=== PATIENT | female | born 1950 | race Caucasian/White ===

== ENCOUNTER 2016-07-24 15:20 | Inpatient (IN) | payer BC, MEDICARE ==
[~2016-07-24 15:20] MED LIST: ALBUTEROL17 GM; ALEVE220 M1 PO; AXERT12.5 MG; BENTYL20 M1 PO; CALCIUM + VITA1 EAC4 PO; CITRACAL200 MG PO; CITRATE OF MAG300 M1 PO; COMPAZINE10 M PO; COSAMIN DS PO; D-VERT25 MG PO; FIBER CHOICE1 EACH PO; FLONASE ALLERG9.9 ML NS; MEDROL4 MG PO; NAPROSYN500 MG PO; NEXIUM20 MG; PRILOSEC10 MG PO; PROAIR RESPICL90 MCG INH; PROTONIX40 M2 PO; SYNTHROID50 MC1 PO; TYLENOL325 M2 PO; VANCOCIN HCL125 MG PO; VITAMIN B12-FO1 EAC1 PO; XOPENEX HFA15 GM IH; ZYRTEC10 M1 PO; ZYRTEC5 MG
[2016-07-24 16:03] LABS: BASO % 0.3 % (0-2); EOS % 0.5 % (0-7); EOSINOPHIL ABSOLUTE COUNT 0.1 tho/cmm (0.0-0.7); HCT-HEMATOCRIT 42.3 % (34.0-49.0); HGB-HEMOGLOBIN 14.1 gm/dl (12.0-15.5); IMMATURE GRANULOCYTES ABSOLUTE 0.03 tho/cmm (0-0.03); IMMATURE GRANULOCYTES PERCENT 0.3 % (0-0.3); LYMPH % 16.6 % (20-45); LYMPH ABSOLUTE COUNT 1.7 tho/cmm (0.8-4.5); MCH (MEAN CORPUSCULAR HGB) 29.9 pg (28.0-32.0); MCHC MEAN CORPUSCULAR HGB CONC 33.3 % (32.0-36.0); MCV (MEAN CELL VOLUME) 89.8 fl (82.0-96.0); MEAN PLATELET VOLUME 9.6 cmc (9.4-12.4); MONO % 7.8 % (0-12); MONOCYTE ABSOLUTE COUNT 0.8 tho/cmm (0.0-1.2); NEUTROPHIL ABSOLUTE COUNT 7.8 tho/cmm (1.6-8.0); NEUTROPHIL-AUTOMATED 7.8 tho/cmm (1.6-8.0); NEUTROPHILS % 74.5 % (40-80); PLATELET COUNT 233 tho/cmm (150-450); RED BLOOD COUNT 4.71 mil/cmm (4.00-5.20); RED CELL DISTRIBUTION WIDTH 13.4 % (12.4-16.4); WHITE BLOOD COUNT 10.4 tho/cmm (4.0-10.0)
[2016-07-24 16:19] LABS: ALBUMIN 3.8 g/dl (3.5-5.0); ALKALINE PHOSPHATASE 70 U/L (33-138); ALT/SGPT 17 U/L (12-78); ANION GAP 12 mmol/L (0-20); AST/SGOT 13 U/L (10-40); BILIRUBIN,TOTAL 0.5 mg/dl (0-1.5); BLOOD UREA NITROGEN 14 mg/dl (6-24); C-REACTIVE PROTEIN 1.8 mg/dl (0-0.9); CALCIUM 9.3 mg/dl (8.5-10.5); CARBON DIOXIDE-VENOUS 24 mmol/L (22-32); CHLORIDE 111 mmol/l (96-110); CREATININE 0.86 mg/dl (0.50-1.10); GLUCOSE 99 mg/dL (70-110); LIPASE 111 U/L (73-393); POTASSIUM 3.8 mmol/L (3.7-5.1); SODIUM 143 mmol/L (135-145); eGFR VALUE FOR BLACK 82 mL/Min
[2016-07-24 17:00] LABS: URINE BILIRUBIN NEGATIVE (NEG); URINE BLOOD MODERATE (NEG); URINE GLUCOSE (UA) NEGATIVE (NEG); URINE KETONE MODERATE (NEG); URINE LEUKOCYTE ESTERASE NEGATIVE (NEG); URINE NITRITE NEGATIVE (NEG); URINE PROTEIN SMALL (NEG); URINE SPECIFIC GRAVITY 1.025 (1.003-1.030)
[2016-07-24 17:01] LABS: URINE APPEARANCE CLEAR; URINE COLOR YELLOW
[2016-07-24 17:10] LABS: URINE MUCUS 2+
[2016-07-24 17:11] LABS: URINE EPITHELIAL CELLS RARE /[HPF] (0-10); URINE WBC 0-4 /[HPF] (0-5)
[2016-07-24] MEDS ORDERED: CULTURELLE1 EAC1 PO (20:08)
--- NOTE | 2016-07-25 11:36 | NUR ---
virtual care note: d/w pt and her spouse pt's plan of care per Dr Cortez. pt agreeable to the plan as of now. c/o pain in her rectum but is anxious about taking pain meds as they make her dizzy and nauseated. states she will call her nurse if she is in great need. d/w pt CDiff test results-currently negative per lab result this morning. pt is pleased with this information as she states she has suffered from 3 previous bouts of CDiff. Will continue to monitor and await further instruction. electronic chart reviewed, will continue to monitor.
--- NOTE | 2016-07-26 11:01 | NUR ---
VIRTUAL CARE NOTE: PT RESTING ON BED, STATES FEELING "TIRED" OF BEING HAVING LOTS OF STOOLS, NOT FEELING LIKE EATING, ON CLEAR LIQUID CURRENTLY. STILL WAITING FOR TO ROUND YET TODAY TO SEE WHAT IS THE PLAN. PT DENIES ANY NEEDS OR QUESTIONS AT THIS TIME. CHART REVIEWED, WILL CON'T TO MONITOR.
[2016-07-26] MEDS ORDERED: ULTRAM50 M1 PO (19:00)
== END 2016-07-26 20:23 | DRG 395 ==
LOC: EDMED 15:20 → EMR2 18:33 → 5WD 19:30
PROVIDERS: Emergency Medicine; ADMIT Family Medicine
DX: K61.1 Rectal abscess (principal); R15.9 Full incontinence of feces; E53.8 Deficiency of other specified B group vitamins; M19.90 Unspecified osteoarthritis, unspecified site; E78.5 Hyperlipidemia, unspecified; E03.9 Hypothyroidism, unspecified; M81.0 Age-related osteoporosis without current pathological fracture; E55.9 Vitamin D deficiency, unspecified; F17.210 Nicotine dependence, cigarettes, uncomplicated; G47.00 Insomnia, unspecified; F41.9 Anxiety disorder, unspecified; K21.9 Gastro-esophageal reflux disease without esophagitis; K57.90 Diverticulosis of intestine, part unspecified, without perforation or abscess without bleeding; K58.0 Irritable bowel syndrome with diarrhea; J45.909 Unspecified asthma, uncomplicated; Z88.8 Allergy status to other drugs, medicaments and biological substances; Z88.1 Allergy status to other antibiotic agents; Z88.5 Allergy status to narcotic agent
CPT/HCPCS: J1170; J1956; J2405; J7030; Q9967